=== PATIENT | female | born 1950 | race Caucasian/White ===

== ENCOUNTER → 2017-02-25 | Outpatient (CLI) | payer MEDICARE, BC ==
--- NOTE | 2017-02-25 09:30 | RAD ---
DATE: 02/25/2017 EXAM: MAMMO ROSALIE SCREENING BILATERAL HISTORY: Routine screening COMPARISON: 02/25/2016 This study was interpreted with the benefit of Computerized Aided Detection (CAD). The breast parenchyma shows scattered fibroglandular densities. Breast parenchyma level B. FINDINGS: 2-D and 3-D tomosynthesis imaging was performed in CC and MLO projections. No new or enlarging breast densities are seen. Benign calcifications are present. No suspicious microcalcifications have developed. IMPRESSION: Stable mammograms without evidence of malignancy. BI-RADS CATEGORY: 2 BENIGN FINDING(S) RECOMMENDED FOLLOW-UP: 12M 12 MONTH FOLLOW-UP PQRS compliance statement: Patient information was entered into a reminder system with a target due date for the next mammogram. Mammography is a sensitive method for finding small breast cancers, but it does not detect them all and is not a substitute for careful clinical examination. A negative mammogram does not negate a clinically suspicious finding and should not result in delay in biopsying a clinically suspicious abnormality. "Our facility is accredited by the [employer] Mammography [employer]."
== END | disposition home or self-care (01) ==
LOC: MAMMO 08:13
PROVIDERS: ATTEND Family Medicine
DX: Z12.31 Encounter for screening mammogram for malignant neoplasm of breast (principal)
CPT/HCPCS: 77063; G0202; 77067

== ENCOUNTER → 2018-03-02 | Outpatient (CLI) | payer MEDICARE, BC ==
--- NOTE | 2018-03-02 10:29 | RAD ---
DATE: 03/02/2018 EXAM: MAMMO ROSALIE SCREENING BILATERAL HISTORY: Routine screening COMPARISON: 02/25/2017, 02/25/2016 This study was interpreted with the benefit of Computerized Aided Detection (CAD). The breast parenchyma shows scattered fibroglandular densities. Breast parenchyma level B. FINDINGS: 2-D and 3-D tomosynthesis imaging was performed in CC and MLO projections. There is a small ill-defined opacity projected over the central aspect of the left breast which appears new when compared to older studies such as 02/25/2016. There is a suggestion of slight architectural distortion as seen on left CC tomosynthesis image #15. A definite correlate is not seen in the oblique projection. No other new or enlarging breast densities are seen. Minimal benign type calcifications present. No suspicious microcalcifications are seen. IMPRESSION: Possible left breast nodule. Diagnostic mammograms to include spot compression and straight medial lateral views are suggested as well as probably left breast ultrasound. BI-RADS CATEGORY: 0 INCOMPLETE: NEEDS ADDITIONAL IMAGING EVALUATION AND/OR PRIOR MAMMOGRAMS FOR COMPARISON. RECOMMENDED FOLLOW-UP: ADD ADDITIONAL IMAGING PQRS compliance statement: Patient information was entered into a reminder system with a target due date for the next mammogram. Mammography is a sensitive method for finding small breast cancers, but it does not detect them all and is not a substitute for careful clinical examination. A negative mammogram does not negate a clinically suspicious finding and should not result in delay in biopsying a clinically suspicious abnormality. "Our facility is accredited by the [employer] Mammography [employer]."
== END | disposition home or self-care (01) ==
LOC: MAMMO 08:43
PROVIDERS: ATTEND Family Medicine
DX: Z12.31 Encounter for screening mammogram for malignant neoplasm of breast (principal)
CPT/HCPCS: 77063; 77067

== ENCOUNTER → 2018-03-15 | Outpatient (CLI) | payer MEDICARE, BC ==
--- NOTE | 2018-03-15 15:46 | RAD ---
History: Diagnostic examination for further evaluation of the left breast abnormality. Technique: ML and spot compression CC views of the left breast were obtained. Comparison: 03/02/18, 02/25/2017, 02/25/2016, 11/16/2013. Findings: The left breast asymmetry with architectural distortion was again seen on the spot compression CC views. The abnormality was not definitively identified on the ML view. Therefore ultrasound was performed. Ultrasound findings: No discrete sonographic correlate was identified. Impression: The abnormality persisted on the spot compression CC view without definite ultrasound correlate and is suspicious. This architectural distortion may be seen with radial scar or malignancy. Recommendation: The abnormalities seen on the spot compression CC view of the left breast is suspicious and therefore referral to a breast surgeon is recommended. Under the guidance of a breast surgeon, breast MRI may be performed as it may yield additional details. This may be amenable to needle localization and possibly stereotactic biopsy if clinically indicated. This was discussed with Dr. Melendez's nurse, Dacia, who would relay the findings to Dr. Melendez, 03/15/18, 340 pm. BI-RADS Category 4: Suspicious. The patient will receive a letter with the results in the mail. "Our facility is accredited by the [employer] Mammography [employer]." BI-RADS 4 -- suspicious abnormality, biopsy recommended
== END | disposition home or self-care (01) ==
LOC: MAMMO 12:26
PROVIDERS: ATTEND Family Medicine
DX: R92.8 Other abnormal and inconclusive findings on diagnostic imaging of breast (principal)
CPT/HCPCS: 76641; 77065